=== PATIENT | male | born 1950 | race Caucasian/White ===

== ENCOUNTER 2019-07-04 08:33 | Emergency (ER) | payer OTHER ==
[~2019-07-04] VITALS: Ht 162.6 cm; Wt 117.7 kg
[2019-07-04 08:37] VITALS: BP 111/81
--- NOTE | 2019-07-04 09:00 | NUR ---
Patient discharged with v/s stable. Written and verbal after care instructions given and explained. Patient alert, oriented and verbalized understanding of instructions. Ambulatory with steady gait. All questions addressed prior to discharge. ID band removed. Patient advised to follow up with PMD. Rx of Bactrim 800-160mg Tab given. Patient educated on indication of medication including possible reaction and side effects. Opportunity to ask questions provided and answered.
--- NOTE | 2019-07-04 09:03 | NUR ---
DR ROD AT BEDSIDE EXAMINING PT
[2019-07-04] MEDS ORDERED: BACITRACIN OINT 500 UNITS/GM PKT TP ONE ×2 (09:15→09:16)
[2019-07-04 09:46] VITALS: BP 111/81
== END 2019-07-04 09:00 | disposition home or self-care (01) ==
LOC: MED 08:33
DX: L03.116 Cellulitis of left lower limb (principal); E11.9 Type 2 diabetes mellitus without complications; I50.9 Heart failure, unspecified
CPT/HCPCS: 99282

== ENCOUNTER 2019-09-20 09:07 | Emergency (ER) | payer OTHER ==
[~2019-09-20] VITALS: Ht 167.6 cm; Wt 136.1 kg
--- NOTE | 2019-09-20 09:08 | NUR ---
PATIENT BIBA TO BED 6 AT THIS TIME.
[2019-09-20 09:13] VITALS: BP 112/66
--- NOTE | 2019-09-20 09:16 | NUR ---
69/M BIBA from home c/o nausea x 1 wk. Denies vomiting/diarrhea, F/C, heartburn, dysphagia, pain. States "it feels like food is stuck in my throat sometimes". States dry mouth. VSS on bedside monitor. AAOx4. Appears anxious. States "I don't know if something is wrong with my tonsils...it'd be good to take it out though. Can I get a colonoscopy here? I'm supposed to get one". medhx: HTN, CHF, DM, anxiety
--- NOTE | 2019-09-20 09:24 | NUR ---
Dr. Bennett evaluating pt at bedside.
[2019-09-20] MEDS: ONDANSETRON 4 MG ODT PO ONE (09:41)
--- NOTE | 2019-09-20 09:41 | NUR ---
CONVENTION SERVICES MANAGER AT BEDSIDE FOR BLOOD DRAW
--- NOTE | 2019-09-20 09:41 | NUR ---
XRAY AT BEDSIDE
--- NOTE | 2019-09-20 09:46 | NUR ---
EMT AT BEDSIDE FOR EKG
[2019-09-20 09:53] LABS: BASOPHILS # (AUTO) 0.1 K/uL (0.00-0.22); BASOPHILS % (AUTO) 1.1 % (0.0-2.0); EOSINOPHILS # (AUTO) 0.2 K/uL (0-0.4); EOSINOPHILS % (AUTO) 2.2 % (0.0-4.0); HEMATOCRIT 45.2 % (36-52); LYMPHOCYTES # (AUTO) 1.1 K/uL (2.0-11.5); LYMPHOCYTES % (AUTO) 11.5 % (20.5-51.1); MEAN CORPUSCULAR HEMOGLOBIN 26 pg (27-31); MEAN CORPUSCULAR HGB CONC 33 g/dL (33-37); MEAN CORPUSCULAR VOLUME 77.4 fL (80-94); MONOCYTES # (AUTO) 0.8 K/uL (0.8-1.0); MONOCYTES % (AUTO) 8.7 % (1.7-9.3); NEUTROPHILS # (AUTO) 7.1 K/uL (1.8-7.7); NEUTROPHILS % (AUTO) 76.5 % (42.2-75.2); PLATELET COUNT (AUTO) 281 K/uL (140-450); RED BLOOD CELL COUNT(AUTO) 5.83 MIL/uL (4.20-6.10); RED CELL DISTRIBUTION WIDTH 16.7 % (11.6-13.7); WHITE BLOOD COUNT (AUTO) 9.3 K/uL (4.8-10.8)
[2019-09-20 10:06] LABS: ALBUMIN 3.7 g/dL (3.4-5.0); ANION GAP 16.2 (8-16); CARBON DIOXIDE 24.4 mmol/L (21-32); CREATININE 1.7 mg/dL (0.6-1.3); POTASSIUM 4.6 mmol/L (3.5-5.1); TOTAL BILIRUBIN 0.8 mg/dL (0.0-1.0)
--- NOTE | 2019-09-20 11:11 | NUR ---
DR. MCMANUS SPEAKING W/ PT AT BEDSIDE
--- NOTE | 2019-09-20 11:34 | NUR ---
PER DR. MCMANUS, DRAW TROP AND MAGNESIUM 30 MIN LATER. MERCURY CELL CLEANER MAGALI NOTIFIED.
--- NOTE | 2019-09-20 12:14 | NUR ---
PHLEB AT BEDSIDE FOR BLOOD DRAW
--- NOTE | 2019-09-20 13:40 | NUR ---
PER DR. MCMANUS, OKAY TO D/C PATIENT--DO NOT NEED TO REPLACE MAGNESIUM HERE. WILL INSTRUCT PT TO TAKE OTC MAGNESIUM PER DR. MCMANUS.
--- NOTE | 2019-09-20 13:50 | NUR ---
Patient discharged with v/s stable. Written and verbal after care instructions given and explained. Patient alert, oriented and verbalized understanding of instructions. Wheel Chair Assisted TO LOBBY. FRONT LOBBY STAFF TO CALL CAB FOR PATIENT. PT PLACED IN LOBBY AND FRONT LOBBY STAFF NOTIFIED TO CALL CAB. All questions addressed prior to discharge. ID band removed. Patient advised to follow up with PMD. Rx of ZOFRAN given. PT ALSO INSTRUCTED TO TAKE MAGNESIUM OTC PER DR. MCMANUS. Patient educated on indication of medication including possible reaction and side effects. Opportunity to ask questions provided and answered.
[2019-09-20 13:53] VITALS: BP 105/41
== END 2019-09-20 13:50 | disposition home or self-care (01) ==
LOC: MED 09:07
DX: R11.0 Nausea (principal); I49.3 Ventricular premature depolarization; R00.0 Tachycardia, unspecified; E11.9 Type 2 diabetes mellitus without complications
CPT/HCPCS: 36415; 71045; 80053; 83735; 83880; 84484; 85025; 85610; 85730; 93005; 99285; Q0092; Q0162

== ENCOUNTER 2021-06-09 14:31 | Emergency (ER) | payer OTHER ==
[~2021-06-09] VITALS: Ht 182.9 cm; Wt 118.8 kg
--- NOTE | 2021-06-09 14:32 | NUR ---
PT BIBA AND TAKEN TO BED 9
[2021-06-09 14:39] VITALS: BP 120/82
--- NOTE | 2021-06-09 14:41 | NUR ---
PT'S CAREGIVER PRISCA [phone]
[2021-06-09] MEDS ORDERED: KETOROLAC 60 MG/2 ML VIAL IM ONE (14:45)
--- NOTE | 2021-06-09 14:45 | NUR ---
71 Y/O MALE BIBA FROM HOME C/O MECH FALL XTODAY. PER EMS WAS ON GROUND FOR 1 HOUR. DENIES LOC. NO BLOOD THINNERS. LT FOREARM SKIN TEAR NOTED. PT DENIES ANY PAIN CURRENTLY, BUT STATED HE NORMALLY HAS CHRONIC KNEE PAIN. MEDHX: CHF, HTN, DM NKA
--- NOTE | 2021-06-09 14:46 | NUR ---
DR. AREVALO BEDSIDE EVALUATING PT
--- NOTE | 2021-06-09 14:47 | NUR ---
xray at patient bedside
--- NOTE | 2021-06-09 16:04 | NUR ---
spoke with patient papi mazariegos and informed patient is ready for discharge. per yair "she is in [place] and unable to come right now. she will call someone else and see if they are available to fern picker the patient and will call us back."
[2021-06-09] MEDS ORDERED: BACITRACIN OINT 500 UNITS/GM PKT TP ONE (16:15)
[2021-06-09 16:52] VITALS: BP 121/59
[2021-06-09] MEDS ORDERED: IBUP-2213 PO (16:53)
--- NOTE | 2021-06-09 17:13 | NUR ---
Patient discharged with v/s stable. Written and verbal after care instructions given and explained. Patient alert, oriented and verbalized understanding of instructions. Wheel Chair Assisted with steady gait. All questions addressed prior to discharge. ID band removed. Patient advised to follow up with PMD. Rx of IBUPROFEN given. Patient educated on indication of medication including possible reaction and side effects. Opportunity to ask questions provided and answered.
== END 2021-06-09 17:13 | disposition home or self-care (01) ==
LOC: MED 14:31
DX: S51.812A Laceration without foreign body of left forearm, initial encounter (principal); S80.02XA Contusion of left knee, initial encounter; S80.01XA Contusion of right knee, initial encounter; J44.9 Chronic obstructive pulmonary disease, unspecified; E11.9 Type 2 diabetes mellitus without complications; K21.9 Gastro-esophageal reflux disease without esophagitis; I50.9 Heart failure, unspecified; W18.39XA Other fall on same level, initial encounter; Y92.89 Other specified places as the place of occurrence of the external cause; Y93.89 Activity, other specified; Y99.8 Other external cause status
CPT/HCPCS: 73562; 96372; 99283; J1885

== ENCOUNTER 2021-07-28 11:51 | Inpatient (IN) | payer OTHER ==
[~2021-07-28] VITALS: Ht 177.8 cm; Wt 121.6 kg
[~2021-07-28 11:51] MED LIST: IBUP-2213 PO
--- NOTE | 2021-07-28 11:56 | NUR ---
AB JIM VIA GURNEY TO BED 06.
[2021-07-28 11:58] VITALS: BP 139/72
--- NOTE | 2021-07-28 12:00 | NUR ---
71 y/o male biba from home, pt reports he heard voices that told him yesterday that he would have sob this morning. pt states he started feeling sob an hour prior to arrival. pt is normally on o2 at home, pt currently 95% on 2L. denies cp, fevers, cough, si, intent to harm self or others. pmh: afib, psych hx, dm2, htn, copd, chf nka med: denies
--- NOTE | 2021-07-28 13:42 | NUR ---
Lab at bedside.
[2021-07-28 13:58] LABS: BASOPHILS # (AUTO) 0.1 K/uL (0.00-0.22); BASOPHILS % (AUTO) 0.8 % (0.0-2.0); EOSINOPHILS # (AUTO) 0.1 K/uL (0-0.4); HEMATOCRIT 40.7 % (36-52); HEMOGLOBIN 13.2 g/dL (12.0-18.0); LYMPHOCYTES # (AUTO) 0.7 K/uL (2.0-11.5); LYMPHOCYTES % (AUTO) 5.9 % (20.5-51.1); MEAN CORPUSCULAR HEMOGLOBIN 26 pg (27-31); MEAN CORPUSCULAR HGB CONC 32 g/dL (33-37); MEAN CORPUSCULAR VOLUME 79.5 fL (80-94); MONOCYTES # (AUTO) 0.9 K/uL (0.8-1.0); MONOCYTES % (AUTO) 7.3 % (1.7-9.3); NEUTROPHILS # (AUTO) 10.5 K/uL (1.8-7.7); PLATELET COUNT (AUTO) 347 K/uL (140-450); RED BLOOD CELL COUNT(AUTO) 5.12 MIL/uL (4.20-6.10); WHITE BLOOD COUNT (AUTO) 12.4 K/uL (4.8-10.8)
--- NOTE | 2021-07-28 13:58 | NUR ---
Radiology at bedside
[2021-07-28 14:30] LABS: MAGNESIUM 1.5 mg/dL (1.8-2.4); PHOSPHORUS 3.9 mg/dL (2.5-4.9)
[2021-07-28 14:47] LABS: ALBUMIN 3.2 g/dL (3.4-5.0); ANION GAP 14.6 (8-16); CARBON DIOXIDE 26.1 mmol/L (21-32); CREATININE 0.9 mg/dL (0.6-1.3); POTASSIUM 3.7 mmol/L (3.5-5.1); TOTAL BILIRUBIN 0.7 mg/dL (0.0-1.0)
[2021-07-28] MEDS ORDERED: FUROSEMIDE 40 MG/4 ML VIAL IVP ONE (15:20)
--- NOTE | 2021-07-28 17:08 | NUR ---
Patient was assisted to use urinal. Patient was offered condom catheter and approved of it.
--- NOTE | 2021-07-28 18:33 | NUR ---
Patient was offered his dinner tray. Patient is eating at bedside.
[2021-07-28] MEDS ORDERED: MAG SULF 2000 MG/WATER PREMIX 50 ML IV PRN (18:45)
[2021-07-28] MEDS ORDERED: ACETAMINOPHEN 325 MG TAB PO PRN (18:45)
[2021-07-28] MEDS ORDERED: DOCUSATE SODIUM 100 MG GELCAP PO PRN (18:45)
[2021-07-28] MEDS ORDERED: HYDROcodone/APAP 5/325 MG 1 TAB TAB PO PRN (18:45)
[2021-07-28] MEDS ORDERED: ZOLPIDEM 5 MG TAB PO PRN (18:45)
[2021-07-28] MEDS ORDERED: ONDANSETRON 4 MG/2 ML VIAL IM/IVP PRN (18:45)
[2021-07-28 19:20] LABS: PROTHROMBIN TIME 10.9 secs (10.8-13.4)
[2021-07-28 19:23] LABS: THYROID STIMULATING HORMONE 1.72 uIU/mL (0.34-3.74)
--- NOTE | 2021-07-28 19:55 | NUR ---
pt nasal cannula repositioned . o2 monitor put on . pt states no pain at this time. all needs met
--- NOTE | 2021-07-28 21:08 | NUR ---
Patient will be admitted to care of . Admited to TELEMETRY. Will go to [id number]. Belongings list completed. Report to MALOU.
--- NOTE | 2021-07-28 22:43 | NUR ---
The patient's care was reviewed and supervised by Queenie Dietz RN.
--- NOTE | 2021-07-28 23:45 | NUR ---
ADMITTED 71 Y.O.M FROM ER.PLACED ON BED.TELE APPLIED AND SHOWING ST.RESP.UNLABORED W/O2 AT 2L/NC.SL PATENT IN LT.HAND W/# 22G.PA Robert MAYAAND ORIENTED X 4.DENIED PAIN AT TIME OF ADMISSION.CALL SYSTEM EXPLAINED AND WITHIN REACH.CARE PLAN DISCUSSED WITH PT.LINDA CONT.MONITORING.
[2021-07-29] VITALS (7 sets, daily range): BP systolic 91–141; BP diastolic 50–82
[2021-07-29] MEDS: LORazepam 1 MG TAB PO PRN (01:07)
--- NOTE | 2021-07-29 01:10 | NUR ---
HR IS SR.WAS AGITATED ATIVAN PO GIVEN.WILL MONITOR PT.NO SOB NOTED.
--- NOTE | 2021-07-29 04:32 | NUR ---
SLEEPING.NO AGITATION AT PRESENT TIME.HR IS SR.
--- NOTE | 2021-07-29 05:52 | NUR ---
PT IS DIABETIC CHECKED BS LAST [id number]=401 AND THIS VS=071.WILL ENDORSED TO AM SHIFT TO ASKE MD FOR ACCU CHECK AND SLIDING SCALE.
[2021-07-29] MEDS ORDERED: NACL 0.9% IRR 250 ML BOTTLE IR PRN (06:20)
--- NOTE | 2021-07-29 06:38 | NUR ---
PATIENT HAS BEEN SCREENED AND CATEGORIZED MODERATE NUTRITION RISK. PATIENT WILL BE SEEN WITHIN 3-5 DAYS OF ADMISSION. 07/31/21-08/02/21 NORMA NINO MS, RDN
--- NOTE | 2021-07-29 07:21 | NUR ---
ENDSUYAPASED REPORT TO AM RN IN STABLE CONDITION.
--- NOTE | 2021-07-29 07:21 | NUR ---
RECEIVED BEDSIDE REPORT FROM MALOU WELSH RN FOR CONTINUITY OF CARE. PT IN BED, AAOX4. SR ON TELEMONITOR. ON 2L NC, RESPIRATIONS EVEN AND UNLABORED. BOWEL SOUNDS ACTIVE. CONTINENT OF BLADDER, URINAL AT BEDSIDE. MILD WEAKNESS. SKIN NOT INTACT, SEE WOUND ASSESSMENT. LH 22G SALINE LOCK. ON STANDARD PRECAUTIONS. CALL LIGHT WITHIN REACH. SAFETY PRECAUTIONS MET. WILL CONTINUE TO CLOSELY MONITOR.
[2021-07-29 07:29] LABS: BASOPHILS # (AUTO) 0.1 K/uL (0.00-0.22); BASOPHILS % (AUTO) 0.6 % (0.0-2.0); EOSINOPHILS # (AUTO) 0.2 K/uL (0-0.4); EOSINOPHILS % (AUTO) 1.4 % (0.0-4.0); HEMATOCRIT 39.7 % (36-52); LYMPHOCYTES # (AUTO) 1.1 K/uL (2.0-11.5); LYMPHOCYTES % (AUTO) 9.9 % (20.5-51.1); MEAN CORPUSCULAR HEMOGLOBIN 26 pg (27-31); MEAN CORPUSCULAR HGB CONC 33 g/dL (33-37); MEAN CORPUSCULAR VOLUME 79.9 fL (80-94); MONOCYTES # (AUTO) 0.8 K/uL (0.8-1.0); MONOCYTES % (AUTO) 7.6 % (1.7-9.3); NEUTROPHILS # (AUTO) 8.7 K/uL (1.8-7.7); PLATELET COUNT (AUTO) 370 K/uL (140-450); RED BLOOD CELL COUNT(AUTO) 4.97 MIL/uL (4.20-6.10); WHITE BLOOD COUNT (AUTO) 10.8 K/uL (4.8-10.8)
[2021-07-29 07:50] LABS: CHOL/HDL RATIO 6.2 (1-4.5); MAGNESIUM 1.9 mg/dL (1.8-2.4); PHOSPHORUS 3.5 mg/dL (2.5-4.9)
[2021-07-29 08:08] LABS: T4 (THYROXINE) 9.5 ug/dL (4.5-12.0)
[2021-07-29 08:10] LABS: ANION GAP 12.8 (8-16); CARBON DIOXIDE 27.7 mmol/L (21-32); CREATININE 0.8 mg/dL (0.6-1.3); POTASSIUM 3.5 mmol/L (3.5-5.1)
[2021-07-29 08:20] LABS: NEUTROPHILS % (AUTO) 80.5 % (42.2-75.2)
[2021-07-29] MEDS ORDERED: FUROSEMIDE 40 MG/4 ML VIAL IVP SCH (09:00)
--- NOTE | 2021-07-29 09:45 | NUR ---
SEEN AND EXAMINED BY DR LEE.
--- NOTE | 2021-07-29 12:00 | NUR ---
SEEN AND EXAMINED BY DR CHINO.
--- NOTE | 2021-07-29 13:55 | NUR ---
SEEN AND EXAMINED BY DR YANG
--- NOTE | 2021-07-29 16:10 | NUR ---
PT RESTING, RESPIRATIONS EVEN AND UNLABORED. WILL CONTINUE TO MONITOR.
[2021-07-29] MEDS: FUROSEMIDE 40 MG/4 ML VIAL IVP SCH (17:18)
--- NOTE | 2021-07-29 18:00 | NUR ---
PT ASLEEP, NO S/S ACUTE DISTRESS OR DISCOMFORT. CALL LIGHT WITHIN REACH. WILL CONTINUE TO MONITOR.
--- NOTE | 2021-07-29 19:15 | NUR ---
ENDORSED BEDSIDE REPORT TO FELICIANO WELSH RN FOR CONTINUITY OF CARE.
--- NOTE | 2021-07-29 19:41 | NUR ---
GET THE REPORT FROM MORNING NURSE , PATIENT IS LYING ON BED, PATIENT IS ALERT ORIENTED X4,PATIENT IS RECEIVING OXYGEN VIA NASAL CANNULA 2 LITER, CALL LIGHT IS WITHIN THE REACH, WILL CONTINUE TO MONITOR PATIENT.
--- NOTE | 2021-07-29 20:30 | NUR ---
PATIENT IS LYING ON BED,VITAL SIGN IS WITHIN THE NORMAL RANGE, ALL SCHEDULE MEDICATION IS GIVEN PER DOCTOR ORDER, CALL LIGHT IS WITHIN THE REACH, WILL CONTINUE TO MONITOR PATIENT.
[2021-07-29 21:50] LABS: APPEARANCE,URINE CLEAR (CLEAR); BILIRUBIN,URINE NEGATIVE (NEGATIVE); BLOOD, URINE NEGATIVE (NEGATIVE); COLOR,URINE YELLOW (YELLOW); LEUKOCYTE ESTERASE ,URINE NEGATIVE (NEGATIVE); NITRITE, URINE NEGATIVE (NEGATIVE); PH,URINE 6.5 (5.0-9.0); UGLUCOSE 3+ (NEGATIVE)
[2021-07-29 22:01] LABS: BARBITURATE, URINE NEGATIVE ng/ml (NEG <=200); BENZODIAZEPINE, URINE NEGATIVE ng/mL (NEG <=200); CANNABINOID, URINE NEGATIVE ng/mL (NEG <=50); COCAINE, URINE NEGATIVE ng/mL (NEG <=300); OPIATE, URINE NEGATIVE ng/mL (NEG <=2000); PHENCYCLIDINE SCREEN,URINE NEGATIVE ng/mL (NEG <=25)
[2021-07-30] VITALS: BP 110/60
--- NOTE | 2021-07-30 00:30 | NUR ---
PATIENT IS LYING ON BED, VITAL SIGN IS WITHIN THE NORMAL RANGE, NO ANY COMPLAIN OF PAIN OR SHORTNESS OF BREATH AT THIS TIME,CALL LIGHT IS WITHIN THE REACH,WILL CONTINUE TO MONITOR PATIENT.
[2021-07-30 04:00] VITALS: BP 112/60
--- NOTE | 2021-07-30 05:24 | NUR ---
PATIENT IS LYING ON BED, VITAL SIGN IS WITHIN THE REACH,WILL CONTINUE TO MONITOR PATIENT,CALL LIGHT IS WITHIN THE REACH ,WILL CONTINUE TO MONITOR PATIENT.
[2021-07-30 06:25] LABS: BASOPHILS # (AUTO) 0.1 K/uL (0.00-0.22); BASOPHILS % (AUTO) 0.9 % (0.0-2.0); EOSINOPHILS # (AUTO) 0.2 K/uL (0-0.4); HEMATOCRIT 40.1 % (36-52); HEMOGLOBIN 13.4 g/dL (12.0-18.0); MEAN CORPUSCULAR HEMOGLOBIN 26 pg (27-31); MEAN CORPUSCULAR HGB CONC 33 g/dL (33-37); MEAN CORPUSCULAR VOLUME 79.1 fL (80-94); MONOCYTES # (AUTO) 0.8 K/uL (0.8-1.0); MONOCYTES % (AUTO) 7.6 % (1.7-9.3); NEUTROPHILS # (AUTO) 8.3 K/uL (1.8-7.7); PLATELET COUNT (AUTO) 360 K/uL (140-450); RED BLOOD CELL COUNT(AUTO) 5.07 MIL/uL (4.20-6.10); RED CELL DISTRIBUTION WIDTH 15.9 % (11.6-13.7); WHITE BLOOD COUNT (AUTO) 10.4 K/uL (4.8-10.8)
[2021-07-30 06:29] LABS: ANION GAP 9.9 (8-16); CARBON DIOXIDE 31.5 mmol/L (21-32); CREATININE 0.8 mg/dL (0.6-1.3); POTASSIUM 3.4 mmol/L (3.5-5.1)
--- NOTE | 2021-07-30 07:00 | NUR ---
RECEIVED REPORT FROM ONLINE MARKETER NURSE. PT IN BED, ALERT & ORIENTED X 4 AND VERBALIZING WANTING TO GO HOME. BREATHING EFFORTLESSLY WITH CHEST RISING AND FALLING--O2 IN PROGRESS AT 2L VIA NC. SALINE LOCK INTACT AT L HAND WITH 22 G CATH. TELEMETRY MONITORING CONTINUES, SHOWING SR. PT VERBALIZES COMFORT AND DENIES PAIN. POC WILL BE CONTINUED AND SAFETY MAINTAINED.
[2021-07-30 07:06] LABS: PHOSPHORUS 2.7 mg/dL (2.5-4.9)
--- NOTE | 2021-07-30 07:23 | NUR ---
GAVE THE REPORT TO MORNING NURSE LIUDMILA MATT FOR CONTINUOS OF CARE, PATIENT IS STABLE.
[2021-07-30 07:55] LABS: LYMPHOCYTES % (AUTO) 9.4 % (20.5-51.1); NEUTROPHILS % (AUTO) 80.1 % (42.2-75.2)
[2021-07-30 08:00] VITALS: BP 102/67
--- NOTE | 2021-07-30 08:54 | NUR ---
NA LEVEL [address] CHINO. Addendum: 07/30/21 at 0903 by Little Yeboah RN PER DR CHINO, WILL SEE PT DURING ROUNDS.
[2021-07-30] MEDS: POTASSIUM CHLORIDE 10 MEQ TABER PO PRN (09:29)
--- NOTE | 2021-07-30 09:30 | NUR ---
AM MEDS ADMIN ORDERED, EXCEPT FOR LASIX IV. PT'S L HAND IV ACCESS OUT OF VEIN. WILL RESTART IV FOR LASIX.
[2021-07-30] MEDS: FUROSEMIDE 40 MG/4 ML VIAL IVP SCH ×2 (11:00→17:11)
--- NOTE | 2021-07-30 11:00 | NUR ---
ATTEMPTS AT RESTARTING IV ACCESS UNSUCCESSFUL BY THIS NURSE & NURSE LIUDMILA. VEINS AT HARPREET ARMS/HANDS ASSESSED SMALL AND ACCESS BLOWN AFTER EACH ATTEMPT. SUCCESSFUL PLACEMENT OF NEW IV ACCESS DONE BY CHARGE NURSE, BIANKA, AT R UPPER ARM USING A 22G CATH. IV LASIX ADMIN ORDERED.
--- NOTE | 2021-07-30 11:16 | NUR ---
RECEIVED CALL FROM LAB REGARDING PT'S MRSA RESULT, PROTOCOL IN PLACE
--- NOTE | 2021-07-30 11:30 | NUR ---
TECH AT BEDSIDE FOR ECHOCARDIOGRAM
[2021-07-30 12:00] VITALS: BP 132/83
--- NOTE | 2021-07-30 12:00 | NUR ---
PT SEEN BY DR MATTI MD AWARE OF MRSA RESULT AND PROTOCOL IN PLACE.
[2021-07-30] MEDS: MUPIROCIN CA NASAL 2% 1GM TUBE NS SCH (12:39)
[2021-07-30] MEDS: CHLORHEXADINE GLUC 2% CLOTH TP SCH (12:40)
--- NOTE | 2021-07-30 12:40 | NUR ---
BACTROBAN NASAL & CHLORHEXIDINE APPLIED ORDERED AND PER PROTOCOL.
[2021-07-30 16:00] VITALS: BP 127/80
--- NOTE | 2021-07-30 16:15 | NUR ---
L LEG SKIN TEAR PHOTOGRAPHED & PHOTO PLACED ON CHART. SKIN TEAR 1.5 CM LENGTH x 1 CM WIDTH, DRY & REDDENED. PATIENT WAS ADMITTED WITH SKIN TEAR ALREADY PRESENT.
--- NOTE | 2021-07-30 16:51 | NUR ---
PATIENT HAS VOIDED CLEAR YELLOW URINE INTO URINAL, AFTER REPORTS OF VOIDING INTO TOILET EARLIER. REPORTS LAST BM 2 DAYS AGO. DENIES PAIN OR DISCOMFORT. ABDOMEN SOFT & NONDISTENDED WITH ACTIVE BOWEL SOUNDS PRESENT.
--- NOTE | 2021-07-30 17:15 | NUR ---
BP RECHECKED--127/80. LASIX IVP ADMIN ORDERED. COLACE ADMIN PO, ORDERED, AT PT'S REQUEST FOR MED TO "HELP BOWELS." CONTINUES TO DENY PAIN/DISCOMFORT.
--- NOTE | 2021-07-30 18:48 | NUR ---
ROUNDED ON PATIENT: PATIENT IS STABLE, BREATHING EFFORTLESSLY ON 2L O2 VIA NC WITH CHEST RISING & FALLING. ALL NEEDS HAVE BEEN MET THROUGHOUT SHIFT. ALL SAFETY MEASURES ARE IN PLACE AND CALL LIGHT IS WITHIN REACH. PATIENT VERBALIZES COMFORT AND DENIES PAIN/DISCOMFORT. PATIENT WILL BE ENDORSED TO FIRE TECHNICIAN NURSE AT 1900.
--- NOTE | 2021-07-30 19:10 | NUR ---
ENDORSED PT TO SHOE PARTS MOLDER NURSE FOR CONTINUITY OF CARE.
[2021-07-30 20:00] VITALS: BP 109/51
[2021-07-30] MEDS: LORazepam 1 MG TAB PO PRN (22:45)
[2021-07-31] VITALS: BP 109/51
[2021-07-31] MEDS: LORazepam 1 MG TAB PO PRN ×2 (03:10→20:15)
--- NOTE | 2021-07-31 03:10 | NUR ---
PT VERBALIZES OF HAVING ANXIETY, MEDICATION ADMINISTERED ORDERED.
[2021-07-31 04:00] VITALS: BP 110/62
--- NOTE | 2021-07-31 06:30 | NUR ---
PT IS SLEEPING ABOUT 4 HOURS AT NIGHT. ON AND OFF ANXIETY PRESENT. ANXIETY MEDICATION ADMINISTERED ORDERED AND PT ASLEEP.
[2021-07-31 07:19] LABS: BASOPHILS # (AUTO) 0.1 K/uL (0.00-0.22); BASOPHILS % (AUTO) 1.3 % (0.0-2.0); EOSINOPHILS # (AUTO) 0.2 K/uL (0-0.4); EOSINOPHILS % (AUTO) 2.3 % (0.0-4.0); HEMATOCRIT 41.5 % (36-52); HEMOGLOBIN 13.9 g/dL (12.0-18.0); LYMPHOCYTES # (AUTO) 1.3 K/uL (2.0-11.5); LYMPHOCYTES % (AUTO) 13.5 % (20.5-51.1); MEAN CORPUSCULAR HEMOGLOBIN 26 pg (27-31); MEAN CORPUSCULAR HGB CONC 34 g/dL (33-37); MEAN CORPUSCULAR VOLUME 78.7 fL (80-94); MONOCYTES # (AUTO) 0.8 K/uL (0.8-1.0); MONOCYTES % (AUTO) 8.6 % (1.7-9.3); NEUTROPHILS # (AUTO) 7.2 K/uL (1.8-7.7); NEUTROPHILS % (AUTO) 74.3 % (42.2-75.2); PLATELET COUNT (AUTO) 374 K/uL (140-450); RED BLOOD CELL COUNT(AUTO) 5.27 MIL/uL (4.20-6.10); WHITE BLOOD COUNT (AUTO) 9.6 K/uL (4.8-10.8)
[2021-07-31 07:26] LABS: ANION GAP 11.7 (8-16); CARBON DIOXIDE 29.4 mmol/L (21-32); CREATININE 0.9 mg/dL (0.6-1.3); POTASSIUM 3.1 mmol/L (3.5-5.1)
[2021-07-31 07:27] LABS: PHOSPHORUS 3.1 mg/dL (2.5-4.9)
--- NOTE | 2021-07-31 07:30 | NUR ---
RECEIVED REPORT FROM [facility] NURSE KADEN. PT IS ASLEEP BUT EASY TO AWAKEN. VERBALLY RESPONSIVE. ABLE TO FOLLOW COMMAND. RESPIRATION REGULAR AND UNLABORED. ON 02 AT 2 L/MIN. VIA N/C. IV TO (R) UPPER ARM INTACT AND PATENT. NO REDNESS OR SWELLING NOTED. DRESSING IS CLEAN AND DRY. DENIES PAIN ON IV SITE. APPEAR CALM AND COMFORTABLE. IN STABLE CONDITION.
--- NOTE | 2021-07-31 07:30 | NUR ---
ENDORSED TO DAY SHIFT FOR CONTINUITY OF PT CARE. PT IS ASLEEP WHEN ENDORSED.
--- NOTE | 2021-07-31 08:30 | NUR ---
DR. Chelo CHINO CAME SEEN AND EXAMINED THE PATIENT WITH NEW ORDER RECEIVED AND CARRIED OUT.
--- NOTE | 2021-07-31 09:33 | NUR ---
WOUND CARE EVALUATION NOTE: PT. WITH LOW AMNA SCALE AT MILD RISK, AND LLE SKIN TEAR 1.5X1CM SUPERFICIAL DEPTH, SOFI WOUND SKIN INTACT, PAIN 0/10. TRANSPARENT DRESSING IN PLACE ,WOUND SITE DRY AND CLEAN, PER PT. HE DOES NOT WANT DRESSING TO BE TOUCHED TODAY. POC DISCUSSED WITH PT. PT.AAX4. PT. VERBALIZES UNDERSTANDING. PT. ABLE TO TURN WITH GOOD BED MOBILITY. CONTINUE TO FOLLOW PRESSURE INJURY PREVENTION INTERVENTIONS. -CLEANSE LLE WOUND WITH NS, PAT DRY, APPLY VERSATEL DRESSING AND CHANGE WEEKLY -MANAGE FRICTION/SHEAR/MOBILITY KEEP HOB AT THE LOWEST LEVEL OF ELEVATION NO MORE THAN 30 DEGREE UNLESS OTHERWISE CONTRAINDICATED USE LIFT SHEET OR TRANSFER DEVICE TO MOVE PATIENT AND PREVENT LATERAL SHEER. PROTECT HEELS, ELBOWS BONY PROMINENCES WITH SKIN BERRIES OR FOAM DRESSING IF EXPOSED TO FRICTION OFFLOAD BILATERAL HEELS BY PLACING PILLOWS UNDER CALVES AT ALL TIMES, UNLESS OTHERWISE CONTRAINDICATED -NUTRITION: PLEASE FOLLOW RD RECOMMENDATIONS AND OFFER NUTRITION SUPPLEMENTS IF ORDERED. PLEASE CONTACT WOUND CARE NURSE FOR ANY QUESTION AND CHANGE OF WOUND CONDITION.
--- NOTE | 2021-07-31 10:00 | NUR ---
PATIENT IS RESTING COMFORTABLY WITH EYES CLOSED, AROUSABLE. ON 02 AT 2 L/NC. HOB ELEVATED AT 35 DEGREES, NO C/O SOB. AMB AD ALAINA WITH STEADY GAITS. PATIENT WAS INSTRUCTED TO CALL FOR ASSISTANCE WHEN NEEDED. VOIDING WITHOUT DIFFICULTY. CONTINUE ON CONTACT ISOLATION, ISOLATION PRECAUTION OBSERVED AT ALL TIMES. ALL NEEDS MET AND ANTICIPATED.
[2021-07-31 10:50] VITALS: BP 110/61
[2021-07-31] MEDS: FUROSEMIDE 40 MG/4 ML VIAL IVP SCH ×2 (11:24→16:43)
[2021-07-31] MEDS: MUPIROCIN CA NASAL 2% 1GM TUBE NS SCH (12:00)
[2021-07-31] MEDS: CHLORHEXADINE GLUC 2% CLOTH TP SCH (12:00)
[2021-07-31 16:00] VITALS: BP 108/51
--- NOTE | 2021-07-31 16:00 | NUR ---
PT. IS ASLEEP BUT EASY TO AWAKEN. DENIES PAIN OR DISCOMFORT. NO SIGNS OF ANXIETY NOTED DURING THE SHIFT. CONT. TO MONITOR STRICT I/O. VITAL SIGNS TAKEN AND RECORDED AND WITHIN NORMAL RANGE. IN NO ACUTE DISTRESS.
--- NOTE | 2021-07-31 19:38 | NUR ---
GET THE REPORT FROM MORNING NURSE, PATIENT IS LYING ON BED, PATIENT IS ALERT ORIENTED X4, PATIENT IS RECEIVING OXYGEN 2 LITER VIA NASAL CANNULA, CALL LIGHT IS WITHIN THE REACH,WILL CONTINUE TO MONITOR PATIENT.
[2021-07-31 20:00] VITALS: BP 110/70
--- NOTE | 2021-07-31 20:23 | NUR ---
PATIENT IS LYING ON BED, VITAL SIGN IS WITHIN THE NORMAL RANGE, NO ANY COMPLAIN OF PAIN OR SHORTNESS OF BREATH AT THIS TIME , ALL SCHEDULE MEDICATION IS GIVEN PER DOCTOR ORDER, PATIENT IS COMPLAINING OF ANXIOUS AND AGITATED AND WANTS PRN ATIVAN 1MG PO IS GIVEN PER DOCTOR ORDER, CALL LIGHT IS WITHIN THE REACH, WILL CONTINUE TO MONITOR PATIENT.
[2021-07-31] MEDS: POTASSIUM CHLORIDE 10 MEQ TABER PO PRN (20:44)
--- NOTE | 2021-07-31 20:52 | NUR ---
PATIENT POTASSIUM LAVAL IS 3.1, K-TENISHA 40 MEQ PO PRN IS GIVEN PER DOCTOR ORDER ,VITAL SIGN IS WITHIN THE NORMAL RANGE, CALL LIGHT IS WITHIN THE REACH,WILL CONTINUE TO MONITOR PATIENT.
[2021-08-01] VITALS: BP 105/71
--- NOTE | 2021-08-01 00:28 | NUR ---
PATIENT IS LYING ON BED, VITAL SIGN IS WITHIN THE NORMAL RANGE, CALL LIGHT IS WITHIN THE REACH,WILL CONTINUE TO MONITOR PATIENT.
[2021-08-01 04:00] VITALS: BP 100/60
--- NOTE | 2021-08-01 04:15 | NUR ---
PATIENT IS LYING ON BED, VITAL SIGN IS WITHIN THE NORMAL RANGE, NO ANY COMPLAIN OF PAIN OR SHORTNESS OF BREATH AT THIS TIME, CALL LIGHT IS WITHIN THE REACH, WILL CONTINUE TO MONITOR PATIENT.
--- NOTE | 2021-08-01 06:10 | NUR ---
PATIENT IS LYING ON BED, ALL SCHEDULE MEDICATION IS GIVEN PER DOCTOR ORDER, CALL LIGHT IS WITHIN THE REACH, WILL CONTINUE TO MONITOR PATIENT.
[2021-08-01 07:07] LABS: BASOPHILS # (AUTO) 0.1 K/uL (0.00-0.22); BASOPHILS % (AUTO) 0.9 % (0.0-2.0); EOSINOPHILS # (AUTO) 0.2 K/uL (0-0.4); EOSINOPHILS % (AUTO) 1.9 % (0.0-4.0); HEMATOCRIT 40.9 % (36-52); HEMOGLOBIN 13.6 g/dL (12.0-18.0); LYMPHOCYTES # (AUTO) 1.3 K/uL (2.0-11.5); LYMPHOCYTES % (AUTO) 13.3 % (20.5-51.1); MEAN CORPUSCULAR HEMOGLOBIN 26 pg (27-31); MEAN CORPUSCULAR HGB CONC 33 g/dL (33-37); MEAN CORPUSCULAR VOLUME 78.8 fL (80-94); MONOCYTES # (AUTO) 0.8 K/uL (0.8-1.0); MONOCYTES % (AUTO) 8.5 % (1.7-9.3); NEUTROPHILS # (AUTO) 7.3 K/uL (1.8-7.7); NEUTROPHILS % (AUTO) 75.4 % (42.2-75.2); PLATELET COUNT (AUTO) 374 K/uL (140-450); RED BLOOD CELL COUNT(AUTO) 5.19 MIL/uL (4.20-6.10); RED CELL DISTRIBUTION WIDTH 15.9 % (11.6-13.7); WHITE BLOOD COUNT (AUTO) 9.7 K/uL (4.8-10.8)
--- NOTE | 2021-08-01 07:15 | NUR ---
GAVE THE REPORT TO MORNING NURSE CHRISTIAN FOR CONTINUOS OF CARE, PATIENT IS STABLE. Addendum: 08/01/21 at 0718 by Diana Ahmadi RN GAVE THE REPORT TO MORNING NURSE LONG FOR CONTINUOS OF CARE, PATIENT IS STABLE
[2021-08-01 07:19] LABS: ANION GAP 10.9 (8-16); CARBON DIOXIDE 31.5 mmol/L (21-32); CREATININE 0.9 mg/dL (0.6-1.3); POTASSIUM 3.4 mmol/L (3.5-5.1)
[2021-08-01 07:29] LABS: PHOSPHORUS 2.9 mg/dL (2.5-4.9)
--- NOTE | 2021-08-01 07:46 | NUR ---
GOT REPORT FROM THE NIGHT NURSE PT SLEEPING , BREATHING EASY.[id number]
[2021-08-01] MEDS: FUROSEMIDE 40 MG/4 ML VIAL IVP SCH (09:07)
[2021-08-01 09:50] VITALS: BP 103/52
--- NOTE | 2021-08-01 10:13 | NUR ---
DC PLANNING: THE PATIENT PRESENTED FROM HOME WITH C/O DYSPNEA, CONGESTION AND NAUSEA. CXR SHOWED POSSIBLE SMALL PLEURAL EFFUSIONS, H/O CHF, COPD AND DM. WBC'S 12.4, BNP 55. STARTED ON LASIX IV AND IVF'S, ORDERS FOR CONSULT WITH PULMONOLOGY AND CARDIOLOGY. CM SPOKE WITH THE PATIENT AT BEDSIDE AND CONFIRMED HIS ADDRESS AND PHONE NUMBER. THE PATIENT LIVES IN A GROUND FLOOR APARTMENT ALONE AND HAS CAREGIVERS 7 DAYS A WEEK. HE STATES THEY COME DAILY FOR 4-6 HOURS BUT IS NOT SURE IF THEY ARE IHSS. HE HAS DME OF O2, 4 WHEEL WALKER WITH SEAT AND AN ELECTRIC SCOOTER. HE SEES HIS PMD DR ALMONTE (?) IN [place] INFREQUENTLY AND SEES A SALES COMMUNICATIONS MANAGER IN [place] BUT COULDN'T REMEMBER THEIR NAME. HE IS INDEPENDENT WITH ADL'S AND AMBULATION, HIS CAREGIVERS DO HIS HOME AND SHOPPING ERRANDS. THE PATIENT WILL DC TO HOME WHEN STABLE, STATES HE WILL NEED HELP WITH A RIDE HOME. HE STATES HE IS ON HOME HEALTH BUT CAN'T REMEMBER THE NAME OF THE AGENCY, PADMINI LEFT A MESSAGE FOR HIS PROVIDER PORTIA JEWELL ASKING FOR THE NAME. CM WILL FOLLOW.
--- NOTE | 2021-08-01 11:00 | NUR ---
PATIENT IS A 71-YEAR-OLD MALE ADMITTED AT THE [facility]/ED ON 07/28/2021 DUE TO COMPLAINTS OF SHORTNESS OF BREATH PATIENT STATED THAT HIS SYMPTOMS STARTED ABOUT 2 DAYS AGO. PATIENT ALSO REPORTED HAVING CHEST CONGESTION AND NAUSEA WHICH GRADUALLY MADE HIS SHORTNESS OF BREATH WORSE. PATIENT HISTORY OF MEDICAL CONGESTIVE HEART FAILURE, COPD, AND DIABETES. SW MET WITH PATIENT AT BEDSIDE TO DISCUSS AND GATHER PATIENT'S COLLATERAL INFORMATION. PATIENT WAS AWAKE AND ALERT ABLE TO PROVIDE HIS OWN INFORMATION; HOWEVER; WAS NOT ABLE TO REMEMBER SOME DETAILS OF HIS CARE SUCH PCP BUT REPORTED HAVING A CAREGIVER PORTIA JEWELL THAT ASSIST PATIENT WITH HIS DAILY NEEDS. PATIENT REPORTED LIVING ALONE AT HIS OWN APARTMENT IN AN ASSISTING LIVING COMMUNITY IN [place]. PER PATIENT HE HAS NO FAMILY OR SUPPORT SYSTEM HOWEVER, HAS MRS. PORTIA JEWELL A CAREGIVER THAT HELPS HIM DAILY. PATIENT HAS LIST HER HIS EMERGENCY CONTACT AND REPORTED NOT HAVING A.D. THEREFORE; HE WAS INTERESTED ON THE A.D. FORMS PROVIDED BY [employer]. PATIENT REPORTED BEEN LIMITED WITH HIS MOVEMENT AND NEEDING ASSISTANCE, GETTING HELP FROM CAREGIVER AND HOME HEALTH 2 DAYS A WEEK, PATIENT COULD NOT REMEMBER, THE HOME HEALTH AGENCY'S NAME, HOWEVER REPORTED THAT HIS CAREGIVER MRS. JEWELL WILL KNOW THIS INFORMATION. SW ASKED PATIENT IS SW CAN CALL HER TO GET ADDITIONAL INFORMATION PATIENT AGREED. DURING THE DISCUSSION PATIENT ALSO REPORTED HAVING A WALKER, SHOWER CHAIR, WHEELCHAIR AND O2 HIS DME AT HOME. REPORTED NOT HAVING ANY ISSUES GETTING HIS MEDICATIONS SINCE HE GETS HIS MEDICATIONS MAIL TO HIS HOME FROM THE PHARMACY AND HIS CAREGIVER HELPS HIM GET THEM ORGANIZED AND READY FOR HIM TO TAKE THEM DAILY. SW EXPLAINED TO PATIENT THE NEED FOR A FOLLOW UP APPOINMENT WITH IN 5-7 DAYS AFTER DISCHARGE WITH HIS PCP. PATIENT AGREED FOR SW TO MAKE HER FOLLOW UP APPOINTMENT; WITH PRIMARY DOCTOR AFTER HE DISCHARGES FROM [facility]. PATIENT STATED THAT HIS CAREGIVER MAY BE ABLE TO ASSIST WITH TRANSPORTATION BACK HOME OR HE MAY NEED ASSISTANCE FROM [facility] TO HELP HIM GET TRANSPORT BACK HOME WHEN HE IS READY FOR DISCHARGE. SW WILL FOLLOW UP WITH PATIENT NEEDED.
[2021-08-01] MEDS ORDERED: FURO-570 PO (11:21)
[2021-08-01] MEDS: MUPIROCIN CA NASAL 2% 1GM TUBE NS SCH (12:56)
[2021-08-01] MEDS: CHLORHEXADINE GLUC 2% CLOTH TP SCH (12:57)
[2021-08-01 13:42] VITALS: BP 103/52
--- NOTE | 2021-08-01 15:25 | NUR ---
PT DISCHARGED HOME , DISCHARGE PAPERS GIVEN , IV AND ID BAND REMOVED, PT LEFT IN W\C. [id number]
--- NOTE | 2021-08-01 16:12 | NUR ---
PHYSICAL THERAPY CO-SIGN The Physical Therapy Progress Notes documented by Cascade Operator have been reviewed. Reviewed/Co-Signed by: Carol Lott Documentation Done by: GENIE MATHEW PTA Addendum: 08/01/21 at 1612 by Carol Lott PT Amended: Links added.
== END 2021-08-01 15:30 | disposition home or self-care (01) | DRG 291 ==
LOC: MED 11:51 → MMU 15:37 → MTU 20:33
DX: I11.0 Hypertensive heart disease with heart failure (principal); J96.21 Acute and chronic respiratory failure with hypoxia; I50.33 Acute on chronic diastolic (congestive) heart failure; E87.1 Hypo-osmolality and hyponatremia; E44.1 Mild protein-calorie malnutrition; J44.9 Chronic obstructive pulmonary disease, unspecified; E11.9 Type 2 diabetes mellitus without complications; F99 Mental disorder, not otherwise specified; E66.9 Obesity, unspecified; I48.91 Unspecified atrial fibrillation; E87.6 Hypokalemia; E78.2 Mixed hyperlipidemia; Z20.822 Contact with and (suspected) exposure to COVID-19; Z68.38 Body mass index [BMI] 38.0-38.9, adult
CPT/HCPCS: 36415; 71045; 71250; 80048; 80053; 80305; 81003; 83036; 83690; 83735; 83880; 84100; 84134; 84436; 84443; 84484; 85025; 85610; 85730; 87081; 93005; 96374; 97112; 97116; 97163-GP; 97530; 99285; J1644; J1940; Q0092